=== PATIENT | female | born 1945 ===

== ENCOUNTER 2023-08-22 08:26 | Outpatient (CLI) | payer MEDICARE | END 2023-08-22 08:27 | disposition home or self-care (01) | LOC: CSHULT 08:26 | PROVIDERS: ATTEND Internal Medicine Cardiovascular Disease | DX: K76.89 Other specified diseases of liver (principal); Z90.49 Acquired absence of other specified parts of digestive tract; I70.0 Atherosclerosis of aorta | CPT/HCPCS: 76700 ==